=== PATIENT | female | born 1960 | race Caucasian/White ===

== ENCOUNTER 2025-06-18 12:59 | Emergency (ER) | payer OTHER, SELFPAY ==
[2025-06-18 13:00] VITALS: BP 127/97; PULSE 97; RESP 16; TEMP 36.2; O2SAT 100; BMI 19.9
--- NOTE | 2025-06-18 13:20 | RAD_ITS ---
PROCEDURE: FOOT MIN 3 VIEWS 06/18/2025 REASON FOR EXAM: INJURY/PAIN Pain to 2nd and 3rd metatarsals during palpation. TECHNIQUE: FOOT MIN 3 VIEWS COMPARISON: None FINDINGS: Three views of the left foot demonstrate diffuse osteopenia of the osseous structures. There are no fractures or dislocations. Joint spaces are well preserved. Soft tissues are unremarkable. RAD/Foot min 3 Views IMPRESSION: Unremarkable left foot study. Reading Location: [id number]
--- NOTE | 2025-06-18 13:43 | EX.ED.GENINJ ---
HPI History of Present Illness Chief Complaint: Lower Extremity Injury Detail of Chief Complaint: Injury left foot Onset/Context/Timing Onset: Yesterday Mechanism/Context: Blunt Injury and Fall Location of pain/injuries: Left foot Quality of Pain: Dull and Aching Location: Over the tarsal metatarsal bones left foot Current Severity: Mild Maximum Severity: Severe Worsened by: Putting weight to walk Relieved by: Elevation Associated Symptoms Associated Symptoms: Negative for Parasthesias, Weakness, Loss of function, Inability to ambulate (Difficulty walking), Loss of consciousness or Amnesia Narrative Narrative: Patient states she was walking her dog. She has a lesion that goes on her waist. Dog caused her to fall. She had pain. The pain is gotten worse. She states the pain is worse when she puts weight. She denies paresthesia, anesthesia or motor weakness. Denies prior injury. She does not have history of diabetes. She states she took a half of a tramadol pill that her friend gave her and was able to sleep through the night. 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) household members: spouse Smoking Status: Never smoker ROS ROS ED Cardiovascular Cardiovascular: Denies chest pain Respiratory/Chest Respiratory/Chest: Denies dyspnea Gastrointestinal Gastrointestinal: Denies abdominal pain, nausea or vomiting Musculoskeletal Musculoskeletal: Denies back pain or neck pain Neurologic Neurologic: Denies paresthesias EXAM Physical Exam Const Vital Signs: 06/18/25 13:00 Temperature 97.2 F L Temperature Source Temporal Pulse Rate 97 Respiratory Rate 16 Blood Pressure 127/97 H Blood Pressure Mean 107 Pulse Ox 100 Oxygen Delivery Method Room Air Positive well nourished and well developed General Appearance ED: well developed and NAD HEENT atraumatic Eyes PERRL and EOMs intact bilaterally Resp normal respiratory effort Cardio regular rhythm Rate: regular rate Extremity normal to inspection Extremity Narrative: There is no pain ovation of the lateral medial malleolus. There is no pain the patient base the fifth metatarsal. Patient has tenderness over the 2nd and 3rd metatarsal and proximal phalanx of respective toes. There is no bruising noted. There is no abrasion or laceration noted. DP pulses palpable. Unable to determine she has subungual hematoma since her toenails are polished. Neuro oriented x3 and CN's II-XII intact bilaterally Sensorium / Orientation: alert Psych mental status grossly normal and thought process normal Skin no rashes or lesions noted, no wounds, skin turgor normal and no jaundice MDM MDM MDM Narrative Medical decision making narrative: X-ray of the left foot was obtained to assess for fracture, subluxation/dislocation. Differential is contusion versus bony abnormality Radiography Chest X-Ray - ED: Read by ED Physician (Three-view x-ray of the left foot reveals no fracture, subluxation dislocation per my independent review at 1343.) Diagnostic Testing: Clinical Impression(s) from Imaging Studies Foot X-Ray 06/18/25 13:20 IMPRESSION: Unremarkable left foot study. Reading Location: [facility] Discharge Plan Triage Chief Complaint: Lower Extremity Injury ED Provider: Dao Field Dx/Rx/DC Orders Clinical Impression: Strain of foot, left Instructions: Self-Care for Strains and Sprains [facility] - 10-14 Days if not better Activity Restrictions/Additional Instructions: 1. Apply ice to your foot 6-8 times a day. 2. Take ibuprofen for your discomfort Print Language: French Disposition Disposition: Home, Self Care
--- OUTSIDE RECORDS SUMMARY | 2025-06-18 14:11 | XMS RPT_ITS | CCD ---
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 NOTE HNO ID: [id number] Author: Neha Camara RN Service: Emergency Medicine Author Type: Registered Nurse Type: ED Notes Filed: 02/14/2019 3:19 PM Note Text: Patient returned to the Emergency Department. [facility] ED NOTE HNO ID: [id number] Author: Neha Camara RN Service: Emergency Medicine Author Type: Registered Nurse Type: ED Notes Filed: 02/14/2019 3:00 PM Note Text: Patient transported to radiology with Tech. [facility] ED NOTE HNO ID: [id number] Author: Neha Camara RN Service: Emergency Medicine Author Type: Registered Nurse Type: ED Notes Filed: 02/14/2019 2:58 PM Note Text: Patient informed: the name of medication, why we are giving it, possible side effects, what they may expect to feel, and was offered a chance to ask questions, prior to the administration of Zofran and IVF. [facility] ED NOTE HNO ID: [id number] Author: Jennifer Ren RN Service: Emergency Medicine Author Type: Registered Nurse Type: ED Notes Filed: 02/14/2019 1:55 PM Note Text: Pt arrivew with complaint of neck pain, left leg pain, rash. Pt was seen in our facility about 1 month ago with transfer to [facility] for surgical procedure. Normal [facility] ED PROV NOTEon 02-14-2019 Protein mass conc HNO ID: [id number] Author: Joycelyn Oreilly MD Service: Emergency Medicine Author Type: Physician Type: ED Provider Notes Filed: 02/14/2019 4:51 PM Note Text: ED Provider Note Patient Name: Jamel Miramontes SERVICE DATE: 02/14/19 History Patient presents with: Neck Pain Leg Pain Rash Jamel Miramontes is a 59 year old female with history of submandibular absecss and sialaadenitis with drainage and dental extraction and IV antibiotics inpatient management about 4 weeks ago who presents with Neck Pain; Leg Pain; and Rash. Patient took nothing for this prior to arrival. - Symptoms began 2 days prior to arrival. - Severity: moderate - Timing: constant - Quality: sore - Neck Pain; is exacerbated by movement palpation. - Neck Pain; is not exacerbated by breathing. - Symptoms are associated with rash on torso. - Symptoms are not associated with fever, nausea and shortness of breath. - Improved by cold compresses. - Not improved by rest Has followup with oral surgeon this week . rash is a separate complaint and she thinks this might be from an exposure to some clothing that she bought no fevers chills or other infectious symptoms.. PAST MEDICAL HISTORY Diagnosis Date - Back pain - Collagenous colitis gets treated at [facility] - Depression PTSD - Fibromyalgia - Menopause - Migraine PAST SURGICAL HISTORY Procedure Laterality Date - APPENDECTOMY - KNEE SCOPE,DIAGNOSTIC right - LAMINECTOMY,LUMBAR Laminectomy, lumbar - REMOVAL OF OVARY(S) bilateral - TOTAL ABDOM HYSTERECTOMY due to endometriosis FAMILY HISTORY Problem Relation Age of Onset - other (hypothryoid) Mother - other (uterine cancer) Sister - Colon Cancer Maternal Uncle Social History Tobacco Use - Smoking status: Current Every Day Smoker Packs/day: 0.50 Years: 40.00 Pack years: 20.00 Types: Cigarettes - Smokeless tobacco: Never Used Substance and Sexual Activity - Alcohol use: Not on file Comment: rare - Drug use: Yes Types: Marijuana Comment: medical marijuana pt - Sexual activity: Not on file ALLERGIES Allergen Reactions - Chantix [Vareniclin* Mental Status Change - Darvocet A500 [Prop* GI Upset - Demerol [Meperidine* GI Upset - Nsaids (Non-Steroid* Intolerance Review of Systems Constitutional: Negative for chills and fever. HENT: Positive for facial swelling, mouth sores and voice change. Negative for congestion, sore throat and trouble swallowing. States that her voice is more hoarse than normal she also has a case of oral thrush that she is treating she had been on steroids and antibiotics recently for the original infection. Respiratory: Negative for cough and shortness of breath. Gastrointestinal: Negative for abdominal pain, nausea and vomiting. Skin: Negative for color change, pallor, rash and wound. Allergic/Immunologic: Negative for environmental allergies, food allergies and immunocompromised state. Neurological: Negative for dizziness, syncope, weakness and light-headedness. Psychiatric/Behavioral: Negative for confusion. The patient is nervous/anxious. Physical Exam BP 144/89 Pulse 105 Temp (Src) 97.2 (Temporal) Resp 20 Ht 5' 8 (1.73m) Wt 145 lb (65.8kg) SpO2 98% BMI 22.05 kg/(m2). O2 Therapy: Room Air Physical Exam Constitutional: She is oriented to person, place, and time. She appears well-developed and well-nourished. No distress. HENT: Head: Normocephalic and atraumatic. Mouth/Throat: Oropharynx is clear and moist. no trismus, dental extraction site looks healed no pooling of oral secretions she is tender underneath the right mandible but no fullness and not nearly as tender she was when she was more acutely infected last month. She has some hoarseness noted to the voice Eyes: EOM are normal. Right eye exhibits no discharge. Left eye exhibits no discharge. Neck: Normal range of motion. No tracheal deviation present. No thyromegaly present. Cardiovascular: Normal rate, regular rhythm and intact distal pulses. No murmur heard. Pulmonary/Chest: Effort normal and breath sounds normal. No respiratory distress. Musculoskeletal: Normal range of motion. She exhibits no edema, tenderness or deformity. Lymphadenopathy: She has no cervical adenopathy. Neurological: She is alert and oriented to person, place, and time. No sensory deficit. She exhibits normal muscle tone. Skin: Skin is warm and dry. Capillary refill takes less than 2 seconds. No rash noted. She is not diaphoretic. No erythema. No pallor. slightly raised excoriated rash to the trunk no petechiae purpura no cellulitis or shingles. Could be consistent with scabies Psychiatric: She has a normal mood and affect. Her behavior is normal. Judgment and thought content normal. Nursing note and vitals reviewed. Diagnostic Testing ED Labs Ordered and Reviewed - No data to display Procedures ED Course / Clinical Impression Clinical Impressions as of Feb 14 1650 Oral thrush Scabies MDM / Disposition / Plan labs and a repeat CT scan sure she has not reaccumulating abscess there is also the question of the sialadenitis I may empirically start her on permethrin cream CT scan shows no acute abnormalities and the patient does describe her oral thrush causing some throat discomfort and this may be accounting for some of her voice change in irritation that started her on Diflucan in addition to nystatin she has an appointment with dentist later this week empirically we'll start her on permethrin cream for scabies instructions Disposition The patient was discharged. Counseled patient regarding lab results, radiology results and suspected diagnosis. As well as the need for follow-up. Discharged home with verbal and written instructions. They were instructed to return as needed for persistent or worsening symptoms or any new concerns. Condition at disposition is stable and improved. for the skin rash. SIGNATURE: MD Joycelyn Molina MD 02/14/19 165 Normal [facility] Hemogram/Diffon 02-14-2019 Abs. Baso 0.03 thou/cmm Normal 0.00-0.[address] [facility] Comment on above: Performed By: #### L MCBD #### [place] [address] Abs. [place] 0.53 thou/cmm Normal 0.20-1.[address] [facility] Comment on above: Performed By: #### L MCBD #### [place] [phone] Abs. Neut (ANC) 5.00 thou/cmm Normal 3.00-5.67 [facility] [place] Comment on above: Performed By: #### L MCBD #### [place] [phone] Basophils/100 WBC (Bld) 0.4 % Normal [facility] [place] Comment on above: Performed By: #### L MCBD #### [facility] [address] [place], [place] [address] Eosinophils #/vol (Bld) 0.21 thou/cmm Normal 0.00-0.41 [facility] [place] Comment on above: Performed By: #### L MCBD #### [facility] [address] [place], [place] [address] Eosinophils/100 WBC (Bld) 2.8 % Normal [facility] [place] Comment on above: Performed By: #### L MCBD #### [facility] [address] [place] [address] Erythrocyte distribution width Ratio (RBC) 14.3 % Normal 11.5-15.9 [facility] [place] Comment on above: Performed By: #### L MCBD #### [place] [address] Hematocrit Volume Fraction (Bld) 40.8 % Normal 37.0-47.0 [facility] [place] Comment on above: Performed By: #### L MCBD #### [facility] [address] [place] [address] Hemoglobin mass conc (Bld) 13.6 g/dL Normal 12.0-16.0 [facility] [place] Comment on above: Performed By: #### L MCBD #### [place] [address] Lymphocytes #/vol (Bld) 1.73 thou/cmm Normal 1.50-3.65 [facility] [place] Comment on above: Performed By: #### L MCBD #### [address] [address] Lymphocytes/100 WBC (Bld) 23.1 % Normal [facility] [place] Comment on above: Performed By: #### L MCBD #### [facility] [address] [place] [address] MCH Entitic mass (RBC) 32.0 pg High 27.0-31.0 [facility] [place] Comment on above: Performed By: #### L MCBD #### [place] [address] MCHC mass conc (RBC) 33.3 % Normal 32.0-36.0 [facility] [place] Comment on above: Performed By: #### L MCBD #### [facility] [address] [place] [address] MCV Entitic volume (RBC) 96.0 fL Normal 81.0-99.0 [facility] [place] Comment on above: Performed By: #### L MCBD #### [facility] [address] [place] [address] Monocytes/100 WBC (Bld) 7.0 % Normal [facility] [place] Comment on above: Performed By: #### L MCBD #### [facility] [address] [place] [address] Platelet mean volume Entitic volume (Bld) 9.1 fL Normal 7.1-10.5 [facility] [place] Comment on above: Performed By: #### L MCBD #### [facility] [address] [place] [address] Platelets #/vol (Bld) 209 thou/cmm Normal 150-400 [facility] [place] Comment on above: Performed By: #### L MCBD #### [facility] [address] [place] [address] RBC #/vol (Bld) 4.25 mil/cmm Normal 4.20-5.40 [facility] Comment on above: Performed By: #### L MCBD #### [facility] [address] [place] [address] Seg Neutrophil 66.7 % Normal [facility] Comment on above: Performed By: #### L MCBD #### [facility] [address] [place] [address] WBC #/vol (Bld) 7.5 thou/cmm Normal 4.8-10.8 [facility] Comment on above: Performed By: #### L MCBD #### [facility] [address] [place] [address] MDRD eGFRon 02-14-2019 GFR/1.73 sq M predicted among non-blacks MDRD vol rate/area (S/P/Bld) mL/min/{1.73_m2} Normal >60mL/min/1.73 m2 [facility] [place] Comment on above: Result Comment: If t he patient is , multiply the result by 1.210. Performed By: #### L MCBD #### [facility] [address] [place] [address] Hemogramon 01-27-2019 Erythrocyte distribution width Ratio (RBC) 11.9 % Normal 11.7-14.4 [facility] [place] Comment on above: Performed By: #### L MCBD #### [facility] [address] [place] [address] Hematocrit Volume Fraction (Bld) 42.2 % Normal 34.1-44.9 [facility] [place] Comment on above: Performed By: #### L MCBD #### [place] [address] Hemoglobin mass conc (Bld) 14.2 g/dL Normal 11.2-15.7 [facility] [place] Comment on above: Performed By: #### L MCBD #### [place] [address] MCH Entitic mass (RBC) 31.4 pg Normal 25.6-32.2 [facility] [place] Comment on above: Performed By: #### L MCBD #### [place] [address] MCHC mass conc (RBC) 33.6 % Normal 31.6-34.8 [facility] [place] Comment on above: Performed By: #### L MCBD #### [facility] [address] [place] [address] MCV Entitic volume (RBC) 93.4 fL Normal 79.4-94.8 [facility] [place] Comment on above: Performed By: #### L MCBD #### [facility] [address] [place] [address] Platelet mean volume Entitic volume (Bld) 9.3 fL Low 9.4-12.3 [facility] [place] Comment on above: Performed By: #### L MCBD #### [place] [address] Platelets #/vol (Bld) 276 thou/cmm Normal 182-369 [facility] [place] Comment on above: Performed By: #### L MCBD #### [facility] [address] [place] [address] RBC #/vol (Bld) 4.52 mil/cmm Normal 3.93-5.22 [facility] Comment on above: Performed By: #### L MCBD #### [facility] [address] [place] [address] RDW SD 41.4 fl Normal 36.4-46.3 [facility] [place] Comment on above: Performed By: #### L MCBD #### [facility] [address] [place] [address] WBC #/vol (Bld) 12.16 thou/cmm High 3.98-10.04 [facility] [place] Comment on above: Performed By: #### L MCBD #### [place] [address] Hemogramon 01-26-2019 Erythrocyte distribution width Ratio (RBC) 12.2 % Normal 11.7-14.4 [facility] [place] Comment on above: Performed By: #### L MCBD #### [facility] [address] [place] [address] Hematocrit Volume Fraction (Bld) 38.3 % Normal 34.1-44.9 [facility] [place] Comment on above: Performed By: #### L MCBD #### [facility] [address] [place] [address] Hemoglobin mass conc (Bld) 12.9 g/dL Normal 11.2-15.7 [facility] [place] Comment on above: Performed By: #### L MCBD #### [facility] [address] [place] [address] MCH Entitic mass (RBC) 31.8 pg Normal 25.6-32.2 [facility] [place] Comment on above: Performed By: #### L MCBD #### [place] [address] MCHC mass conc (RBC) 33.7 % Normal 31.6-34.8 [facility] [place] Comment on above: Performed By: #### L MCBD #### [facility] [address] [place] [address] MCV Entitic volume (RBC) 94.3 fL Normal 79.4-94.8 [facility] [place] Comment on above: Performed By: #### L MCBD #### [facility] [address] [place] [address] Platelet mean volume Entitic volume (Bld) 9.1 fL Low 9.4-12.3 [facility] [place] Comment on above: Performed By: #### L MCBD #### [facility] [address] [place] [address] Platelets #/vol (Bld) 259 thou/cmm Normal 182-369 [facility] [place] Comment on above: Performed By: #### L MCBD #### [facility] [address] [place] [address] RBC #/vol (Bld) 4.06 mil/cmm Normal 3.93-5.22 [facility] Comment on above: Performed By: #### L MCBD #### [facility] [address] [place] [address] RDW SD 42.2 fl Normal 36.4-46.3 [facility] [place] Comment on above: Performed By: #### L MCBD #### [facility] [address] [place] [address] WBC #/vol (Bld) 11.55 thou/cmm High 3.98-10.04 [facility] [place] Comment on above: Performed By: #### L MCBD #### [facility] [address] [place] [address] Hemogramon 01-25-2019 Erythrocyte distribution width Ratio (RBC) 12.3 % Normal 11.7-14.4 [facility] [place] Comment on above: Performed By: #### L MCBD #### [facility] [address] [place] [address] Hematocrit Volume Fraction (Bld) 38.1 % Normal 34.1-44.9 [facility] [place] Comment on above: Performed By: #### L MCBD #### [facility] [address] [place] [address] Hemoglobin mass conc (Bld) 12.7 g/dL Normal 11.2-15.7 [facility] [place] Comment on above: Performed By: #### L MCBD #### [facility] [address] [place] [address] MCH Entitic mass (RBC) 32.1 pg Normal 25.6-32.2 [facility] [place] Comment on above: Performed By: #### L MCBD #### [facility] [address] [place] [address] MCHC mass conc (RBC) 33.3 % Normal 31.6-34.8 [facility] [place] Comment on above: Performed By: #### L MCBD #### [facility] [address] [place] [address] MCV Entitic volume (RBC) 96.2 fL High 79.4-94.8 [facility] [place] Comment on above: Performed By: #### L MCBD #### [place] [address] Platelet mean volume Entitic volume (Bld) 9.7 fL Normal 9.4-12.3 [facility] [place] Comment on above: Performed By: #### L MCBD #### [place] [address] Platelets #/vol (Bld) 263 thou/cmm Normal 182-369 [facility] [place] Comment on above: Performed By: #### L MCBD #### [place] [address] RBC #/vol (Bld) 3.96 mil/cmm Normal 3.93-5.22 [facility] Comment on above: Performed By: #### L MCBD #### [place] [address] RDW SD 43.3 fl Normal 36.4-46.3 [facility] [place] Comment on above: Performed By: #### L MCBD #### [place] [address] WBC #/vol (Bld) 16.24 thou/cmm High 3.98-10.04 [facility] [place] Comment on above: Performed By: #### L MCBD #### [facility] [address] [place] [address] Cult Fungalon 01-24-2019 Cult Fungal Test performed at [facility] No fungus (yeast or mold) cultured Normal [facility] [place] Comment on above: Performed By: #### L MCBD #### [facility] [address] [place] [address] Cult and Smr ADEN and AERon 0 01-24-2019 Cult and Smr ADEN and AER Test performed at [facility] No Bacteroides fragilis group isolated. No Clostridium perfringens isolated. Many Gram positive cocci in pairs and chains Many Polymorphonuclear leukocytes Few Mononuclear cells Many RBCs ORGANISM: *Eikenella species (ID: 1) Few ORGANISM: *Streptococcus anginosus (milleri) group (ID: 2) Few ORGANISM: *Anaerobic Gram-positive coccus (ID: 3) Few Susceptibility testing is not routinely performed on anaerobes from non-sterile sites or in mixed cultures. Call lab within 72 hours to initiate workup if clinically indicated. Normal [facility] [place] Comment on above: Performed By: #### L MCBD #### [facility] [address] [place] [address] Basic Panelon 01-23-2019 Creatinine mass conc 0.66 mg/dL Normal 0.51-0.95 [facility] [place] Comment on above: Performed By: #### P 8 #### [facility] [address] [place] [address] Anion gap molar conc 8 mmol/L Normal 8-16 [facility] [place] Comment on above: Performed By: #### P 8 #### [facility] [address] [place] [address] CO2 molar conc 30 mmol/L Normal 21-32 [facility] Comment on above: Performed By: #### P 8 #### [facility] [address] [place] [address] Urea nitrogen mass conc 5 mg/dL Low 7-18 [facility] [place] Comment on above: Performed By: #### P 8 #### [facility] [address] [place] [address] Calcium mass conc 8.3 mg/dL Low 8.5-10.1 [facility] Comment on above: Performed By: #### P 8 #### [facility] [address] [place] [address] Glucose mass conc 96 mg/dL Normal 70-99 [facility] Comment on above: Performed By: #### P 8 #### [facility] [address] [place] [address] Chloride molar conc 104 mmol/L Normal 98-107 [facility] [place] Comment on above: Performed By: #### P 8 #### [facility] [address] [place] [address] Potassium molar conc 3.5 mmol/L Normal 3.5-5.1 [facility] [place] Comment on above: Performed By: #### P 8 #### [facility] [address] [place] [address] Sodium molar conc 138 mmol/L Normal 136-145 [facility] Comment on above: Performed By: #### P 8 #### [facility] [address] [place] [address] Hemogramon 01-23-2019 Erythrocyte distribution width Ratio (RBC) 12.6 % Normal 11.7-14.4 [facility] [place] Comment on above: Performed By: #### C BC1 #### [facility] [address] [place] [address] Hematocrit Volume Fraction (Bld) 42.7 % Normal 34.1-44.9 [facility] [place] Comment on above: Performed By: #### C BC1 #### [facility] [address] [place] [address] Hemoglobin mass conc (Bld) 13.9 g/dL Normal 11.2-15.7 [facility] [place] Comment on above: Performed By: #### C BC1 #### [facility] [address] [place] [address] MCH Entitic mass (RBC) 31.5 pg Normal 25.6-32.2 [facility] [place] Comment on above: Performed By: #### C BC1 #### [facility] [address] [place] [address] MCHC mass conc (RBC) 32.6 % Normal 31.6-34.8 [facility] [place] Comment on above: Performed By: #### C BC1 #### [facility] [address] [place] [address] MCV Entitic volume (RBC) 96.8 fL High 79.4-94.8 [facility] [place] Comment on above: Performed By: #### C BC1 #### [facility] [address] [place] [address] Platelet mean volume Entitic volume (Bld) 9.4 fL Normal 9.4-12.3 [facility] [place] Comment on above: Performed By: #### C BC1 #### [place] [address] Platelets #/vol (Bld) 220 thou/cmm Normal 182-369 [facility] [place] Comment on above: Performed By: #### C BC1 #### [place] [address] RBC #/vol (Bld) 4.41 mil/cmm Normal 3.93-5.22 [facility] Comment on above: Performed By: #### C BC1 #### [place] [address] RDW SD 45.4 fl Normal 36.4-46.3 [facility] [place] Comment on above: Performed By: #### C BC1 #### [place] [address] WBC #/vol (Bld) 12.84 thou/cmm High 3.98-10.04 [facility] [place] Comment on above: Performed By: #### C BC1 #### [place] [address] MDRD GFRon 01-23-2019 GFR/1.73 sq M predicted among non-blacks MDRD vol rate/area (S/P/Bld) mL/min/{1.73_m2} Normal >60mL/min/1.73 m2 [facility] [place] Comment on above: Result Comment: If t he patient is , multiply the result by 1.210. Performed By: #### L MCBD #### [facility] [address] [place] [address] Comprehensive Panelon 2018 Anion gap molar conc 15 mmol/L Normal 8-20 [facility] [place] Comment on above: Performed By: #### L P14 #### [facility] [address] [place] [address] Albumin mass conc 3.7 g/dL Normal 3.4-5.0 [facility] Comment on above: Performed By: #### L P14 #### [facility] [address] [place] [address] ALP enzyme act/vol 69 U/L Normal 46-116 [facility] [place] Comment on above: Performed By: #### L P14 #### [facility] [address] [place] [address] ALT-SGPT Blood 23 U/L Normal 14-63 [facility] Comment on above: Performed By: #### L P14 #### [facility] [address] [place] [address] AST-SGOT Blood 15 U/L Normal 15-37 [facility] Comment on above: Performed By: #### L P14 #### [facility] [address] [place] [address] Bilirubin Ql (U) 0.7 mg/dL Normal 0.2-1.0 [facility] Comment on above: Performed By: #### L P14 #### [facility] [address] [place] [address] Calcium mass conc 9.3 mg/dL Normal 8.5-10.1 [facility] Comment on above: Performed By: #### L P14 #### [facility] [address] [place] [address] CO2 Blood 32 mEq/L Normal 21-32 [facility] [place] Comment on above: Performed By: #### L P14 #### [facility] [address] [place] [address] Creatinine mass conc 0.82 mg/dL Normal 0.51-0.95 [facility] [place] Comment on above: Performed By: #### L P14 #### [facility] [address] [place], [place] [address] Glucose mass conc 83 mg/dL Normal 70-99 [facility] Comment on above: Performed By: #### L P14 #### [facility] [address] [place], [place] [address] Protein mass conc 7.3 g/dL Normal 6.4-8.2 [facility] Comment on above: Performed By: #### L P14 #### [facility] [address] [place] [address] Urea nitrogen mass conc 8 mg/dL Normal 7-25 [facility] [place] Comment on above: Performed By: #### L P14 #### [facility] [address] [place] [address] Urea nitrogen/Creatinine mass ratio 10 mg/mg Normal 10-20 [facility] [place] Comment on above: Performed By: #### L P14 #### [facility] [address] [place] [address] Chloride molar conc 99 mmol/L Normal 98-109 [facility] [place] Comment on above: Result Comment: Test ing performed on an Tran i-STAT. Performed By: #### L P14 #### [facility] [address] [place] [address] Potassium molar conc 3.6 mmol/L Normal 3.5-4.9 [facility] [place] Comment on above: Result Comment: Test ing performed on an Tran i-STAT. Performed By: #### L P14 #### [facility] [address] [place] [address] Sodium molar conc 142 mmol/L Normal 138-146 [facility] Comment on above: Result Comment: Test ing performed on an Tran i-STAT. Performed By: #### L P14 #### [facility] [address] [place] [address] ED NOTEon 01-22-2019 ED NOTE HNO ID: [id number] Author: Migdalia DesouzaRn) BALJIT Easton Service: Emergency Medicine Author Type: Registered Nurse Type: ED Notes Filed: 01/22/2019 7:23 PM Note Text: Patient informed: Name of medication, why we are giving it, possible side effects, what they may expect to feel, and was offered a chance to ask questions prior to the administration of hydromorphone. Patient verbalizes understanding and denies any further questions as this time. Normal [facility] ED NOTE HNO ID: [id number] Author: Ethel DesouzaRnJennifer Uriostegui RN Service: Emergency Medicine Author Type: Registered Nurse Type: ED Notes Filed: 01/22/2019 6:39 PM Note Text: Bed assignment received from [facility], 7106-2[place] [id number]. [facility] called for transport eta 45min Normal [facility] ED NOTE HNO ID: [id number] Author: Migdalia Easton RN Service: Emergency Medicine Author Type: Registered Nurse Type: ED Notes Filed: 01/22/2019 5:09 PM Note Text: Patient informed: Name of medication, why we are giving it, possible side effects, what they may expect to feel, and was offered a chance to ask questions prior to the administration of hydromorphone. Patient verbalizes understanding and denies any further questions as this time. Normal [facility] ED NOTE HNO ID: [id number] Author: Migdalia Easton RN Service: Emergency Medicine Author Type: Registered Nurse Type: ED Notes Filed: 01/22/2019 2:37 PM Note Text: Patient informed: Name of medication, why we are giving it, possible side effects, what they may expect to feel, and was offered a chance to ask questions prior to the administration of zofran and morphine. Patient verbalizes understanding and denies any further questions as this time. Normal [facility] ED NOTE HNO ID: [id number] Author: Migdalia Easton RN Service: Emergency Medicine Author Type: Registered Nurse Type: ED Notes Filed: 01/22/2019 2:10 PM Note Text: Pt with swelling to right lower salivary glands with bad tooth however patient states tooth is not fractured. Pt reports appt with dentist Thursday for extraction. Patient reports persistent pain with Percocet ineffective. Reports prednisone rx complete,4 more days of clindamycin. Patient reports inability to open mouth and odynophagia. Denies fever at home. Reports only able to drink; unable to week x 7 days. Normal [facility] ED NOTE HNO ID: [id number] Author: Christiano (Rn) BALJIT Egan Service: Emergency Medicine Author Type: Registered Nurse Type: ED Notes Filed: 01/22/2019 2:14 PM Note Text: Normal [facility] ED PROV NOTEon 01-22-2019 Protein mass conc HNO ID: [id number] Author: Joycelyn Oreilly MD Service: Emergency Medicine Author Type: Physician Type: ED Provider Notes Filed: 01/22/2019 6:46 PM Note Text: ED Provider Note Patient Name: Jamel Miramontes SERVICE DATE: 01/22/19 History Patient presents with: Dental Problem Jamel Miramontes is a 58 year old female with history of poor dentition who presents with Dental Problem. Patient took prescription medication prior to arrival. - Symptoms began 6 days prior to arrival. - Severity: moderate - Timing: constant - Quality: pain - Dental Problem is exacerbated by movement palpation. - Dental Problem is not exacerbated by breathing. - Symptoms are associated with pain with swallowing more difficulty opening her mouth. - Symptoms are not associated with shortness of breath. - Improved by nothing helping. - Not improved by OTC medications, warm compresses and antibiotics. PAST MEDICAL HISTORY Diagnosis Date - Back pain - Collagenous colitis [facility] - Depression PTSD - Fibromyalgia - Menopause - Migraine PAST SURGICAL HISTORY Procedure Laterality Date - APPENDECTOMY - KNEE SCOPE,DIAGNOSTIC right - LAMINECTOMY,LUMBAR Laminectomy, lumbar - REMOVAL OF OVARY(S) bilateral - TOTAL ABDOM HYSTERECTOMY due to endometriosis FAMILY HISTORY Problem Relation Age of Onset - other (hypothryoid [Other]) Mother - other (uterine cancer [Other]) Sister - Colon Cancer Maternal Uncle Social History Social History Main Topics - Smoking status: Current Every Day Smoker Packs/day: 0.50 Years: 40.00 Types: Cigarettes - Smokeless tobacco: Never Used Comment: has not had a cigarette in 3 weeks - Alcohol use Not on file Comment: rare - Drug use: Yes Types: Marijuana Comment: medical marijuana pt - Sexual activity: Not on file ALLERGIES Allergen Reactions - Chantix [Vareniclin* Mental Status Change - Darvocet A500 [Prop* GI Upset - Demerol [Meperidine* GI Upset - Nsaids (Non-Steroid* Intolerance Review of Systems Constitutional: Negative for chills and fever. HENT: Positive for dental problem and trouble swallowing. Negative for congestion and drooling. Respiratory: Negative for cough and shortness of breath. Gastrointestinal: Negative for nausea and vomiting. Musculoskeletal: Positive for neck pain. Negative for back pain and myalgias. Skin: Negative for color change, pallor, rash and wound. Allergic/Immunologic: Negative for environmental allergies, food allergies and immunocompromised state. Neurological: Negative for dizziness and syncope. Psychiatric/Behavioral: Negative for confusion. The patient is not nervous/anxious. Physical Exam BP 177/107 Pulse 72 Temp (Src) 98.4 (Temporal Artery) Resp 18 Ht 5' 8 (1.73m) Wt 130 lb (59.0kg) SpO2 96% BMI 19.77 kg/(m2). Physical Exam Constitutional: She is oriented to person, place, and time. She appears well-developed and well-nourished. No distress. HENT: Head: Normocephalic and atraumatic. Right Ear: External ear normal. Left Ear: External ear normal. difficulty opening mouth some of this is secondary to her TMJ but I think some of this also represents trismus no pooling of oral secretions she has absence of most the dentition on the right lower jaw I don't see any obvious intraoral abscess she has tender in the submandibular tissues with some swelling but not firm and no cellulitic changes Eyes: EOM are normal. Right eye exhibits no discharge. Left eye exhibits no discharge. No scleral icterus. Neck: Normal range of motion. Neck supple. No JVD present. No tracheal deviation present. Cardiovascular: Normal rate and regular rhythm. Pulmonary/Chest: Effort normal and breath sounds normal. No respiratory distress. Abdominal: Soft. She exhibits no distension. There is no tenderness. Musculoskeletal: Normal range of motion. She exhibits no edema, tenderness or deformity. Neurological: She is alert and oriented to person, place, and time. No sensory deficit. She exhibits normal muscle tone. Skin: Skin is warm and dry. Capillary refill takes less than 2 seconds. No rash noted. She is not diaphoretic. No erythema. No pallor. Psychiatric: Her behavior is normal. Judgment and thought content normal. tearful Nursing note and vitals reviewed. Diagnostic Testing ED Labs Ordered and Reviewed - No data to display Procedures ED Course / Clinical Impression Clinical Impressions as of Jan 22 1846 Submandibular abscess MDM / Disposition / Plan third visit for same complaint she had clindamycin started 5 days ago she's getting worse rather than better CT scan done 3 days ago showed myositis and sialoadenitis right side and a rescan the neck start IV Zosyn and analgesics I think she is going to need transfer to a facility with ENT/oral surgery availability. CT shows a formation of an abscess today on medial to the mandible going to discuss this case with transfer line C we can get patient to a facility with the appropriate level of care discuss this with both she and her and they're in agreement. She is stable to transfer her airway is protected accepted by Dr. Saenz at [facility] Disposition The patient was transferred. Transferred to [facility]. Condition at disposition is stable. SIGNATURE: MD Joycelyn Molina MD 01/22/19 1846 Normal [facility] Hemogram/Diffon 01-22-2019 Hemoglobin mass conc (Bld) 14.0 g/dL Normal 12.0-16.0 [facility] [place] Comment on above: Performed By: #### L CBCD #### [place] [address] Performed By: #### L MCBD #### [place] [address] RBC #/vol (Bld) 4.42 mil/cmm Normal 4.20-5.40 [facility] Comment on above: Performed By: #### L CBCD #### [place] [address] Performed By: #### L MCBD #### [place] [address] Hemogram/Manual Diffon 01-22 Abs. Baso 0.00 thou/cmm Normal 0.00-0.[address] [facility] Comment on above: Performed By: #### L MCBD #### [place] [address] Abs. [place] 0.70 thou/cmm Normal 0.20-1.[address] [facility] Comment on above: Performed By: #### L MCBD #### [place] [address] [place], [place] [address] Abs. Neut (ANC) 7.22 thou/cmm High 3.00-5.67 [facility] [place] Comment on above: Performed By: #### L MCBD #### [facility] [address] [place], [place] [address] Atypical Lymph 5.0 % Normal [facility] Comment on above: Performed By: #### L MCBD #### [facility] [address] [place], [place] [address] Basophils/100 WBC (Bld) 0.0 % Normal [facility] [place] Comment on above: Performed By: #### L MCBD #### [facility] [address] [place], [place] [address] Eosinophils #/vol (Bld) 0.14 thou/cmm Normal 0.00-0.41 [facility] [place] Comment on above: Performed By: #### L MCBD #### [facility] [address] [place], [place] [address] Eosinophils/100 WBC (Bld) 1.0 % Normal [facility] [place] Comment on above: Performed By: #### L MCBD #### [facility] [address] [place], [place] [address] Lymphocytes #/vol (Bld) 5.84 thou/cmm High 1.50-3.65 [facility] [place] Comment on above: Performed By: #### L MCBD #### [facility] [address] [place], [place] [address] Lymphocytes/100 WBC (Bld) 37.0 % Normal [facility] [place] Comment on above: Performed By: #### L MCBD #### [facility] [address] [place], [place] [address] Monocytes/100 WBC (Bld) 5.0 % Normal [facility] [place] Comment on above: Performed By: #### L MCBD #### [facility] [address] [place], [place] [address] Platelets #/vol (Bld) Normal [facility] Comment on above: Performed By: #### L MCBD #### [facility] [address] [place] [address] RBC morphology finding Nom (Bld) Normal Normal [facility] [place] Comment on above: Performed By: #### L MCBD #### [facility] [address] [place] [address] Seg Neutrophil 52.0 % Normal [facility] Comment on above: Performed By: #### L MCBD #### [facility] [address] [place] [address] Diff Type Manual Diff Normal [facility] [place] Comment on above: Performed By: #### L MCBD #### [facility] [address] [place] [address] Erythrocyte distribution width Ratio (RBC) 12.7 % Normal 11.5-15.9 [facility] [place] Comment on above: Performed By: #### L MCBD #### [place] [address] Performed By: #### L CBCD #### [place] [address] Hematocrit Volume Fraction (Bld) 42.3 % Normal 37.0-47.0 [facility] [place] Comment on above: Performed By: #### L MCBD #### [place] [address] Performed By: #### L CBCD #### [place] [address] MCH Entitic mass (RBC) 31.7 pg High 27.0-31.0 [facility] [place] Comment on above: Performed By: #### L MCBD #### [place] [address] Performed By: #### L CBCD #### [place] [address] MCHC mass conc (RBC) 33.1 % Normal 32.0-36.0 [facility] [place] Comment on above: Performed By: #### L MCBD #### [place] [address] Performed By: #### L CBCD #### [place] [address] MCV Entitic volume (RBC) 95.7 fL Normal 81.0-99.0 [facility] [place] Comment on above: Performed By: #### L MCBD #### [place] [address] Performed By: #### L CBCD #### [place] [address] Platelet mean volume Entitic volume (Bld) 9.5 fL Normal 7.1-10.5 [facility] [place] Comment on above: Performed By: #### L MCBD #### [place] [address] Performed By: #### L CBCD #### [place] [address] Platelets #/vol (Bld) 244 thou/cmm Normal 150-400 [facility] [place] Comment on above: Performed By: #### L MCBD #### [place] [address] Performed By: #### L CBCD #### [place] [address] WBC #/vol (Bld) 13.9 thou/cmm High 4.8-10.8 [facility] [place] Comment on above: Performed By: #### L MCBD #### [place] [address] Performed By: #### L CBCD #### [place] [address] MDRD eGFRon 01-22-2019 GFR/1.73 sq M predicted among non-blacks MDRD vol rate/area (S/P/Bld) mL/min/{1.73_m2} Normal >60mL/min/1.73 m2 [facility] [place] Comment on above: Result Comment: If t he patient is , multiply the result by 1.210. Performed By: #### L GFR #### [place] [address] Basic Panelon 01-20-2019 Anion gap molar conc 15 mmol/L Normal 8-20 [facility] [place] Comment on above: Performed By: #### L P8 #### [facility] [address] [place], [place] [address] Chloride molar conc 99 mmol/L Normal 98-109 [facility] [place] Comment on above: Result Comment: Test ing performed on an Tran i-STAT. Performed By: #### L P8 #### [facility] [address] [place] [address] Potassium molar conc 3.4 mmol/L Low 3.5-4.9 [facility] [place] Comment on above: Result Comment: Test ing performed on an Tran i-STAT. Performed By: #### L P8 #### [facility] [address] [place] [address] Sodium molar conc 142 mmol/L Normal 138-146 [facility] Comment on above: Result Comment: Test ing performed on an Tran i-STAT. Performed By: #### L P8 #### [facility] [address] [place] [address] Calcium mass conc 9.3 mg/dL Normal 8.5-10.1 [facility] Comment on above: Performed By: #### L P8 #### [facility] [address] [place] [address] CO2 Blood 31 mEq/L Normal 21-32 [facility] [place] Comment on above: Performed By: #### L P8 #### [facility] [address] [place] [address] Creatinine mass conc 0.76 mg/dL Normal 0.51-0.95 [facility] [place] Comment on above: Performed By: #### L P8 #### [facility] [address] [place] [address] Glucose mass conc 105 mg/dL High 70-99 [facility] Comment on above: Performed By: #### L P8 #### [facility] [address] [place] [address] Urea nitrogen mass conc 15 mg/dL Normal 7-25 [facility] [place] Comment on above: Performed By: #### L P8 #### [facility] [address] [place] [address] Urea nitrogen/Creatinine mass ratio 20 mg/mg Normal 10-20 [facility] [place] Comment on above: Performed By: #### L P8 #### [facility] [address] [place] [address] ED NOTEon 01-20-2019 ED NOTE HNO ID: [id number] Author: Corinne DesouzaRn) BALJIT Vaughn Service: Emergency Medicine Author Type: Registered Nurse Type: ED Notes Filed: 01/20/2019 12:01 PM Note Text: Pt given discharge instructions and prescription for Percocet. Verbalized understanding. Ambulatory to lobby with steady gait. [facility] ED NOTE HNO ID: [id number] Author: Ethel DesouzaRn) BALJIT Uriostegui Service: Emergency Medicine Author Type: Registered Nurse Type: ED Notes Filed: 01/28/2019 9:35 AM Note Text: Chart accessed on 01-28 for chart audit pi [facility] ED NOTE HNO ID: [id number] Author: Joy DesouzaRn) BALJIT Humphrey Service: (none) Author Type: Registered Nurse Type: ED Notes Filed: 01/20/2019 11:14 AM Note Text: Pt resting quietly No drooling, no s/s of distress Aware CT results are pending Call light in reach [facility] ED NOTE HNO ID: [id number] Author: Corinne DesouzaRn) BALJIT Vaughn Service: Emergency Medicine Author Type: Registered Nurse Type: ED Notes Filed: 01/20/2019 9:41 AM Note Text: Warm blankets given. Pt to radiology by stretcher with tech. [facility] ED NOTE HNO ID: [id number] Author: Corinne Dejesus) BALJIT Vaughn Service: Emergency Medicine Author Type: Registered Nurse Type: ED Notes Filed: 01/20/2019 9:24 AM Note Text: Patient informed: the name of medication, why we are giving it, possible side effects, what they may expect to feel, and was offered a chance to ask questions, prior to the administration of IVF and Decadron. [facility] ED NOTE HNO ID: [id number] Author: Corinne Vaughn RN Service: Emergency Medicine Author Type: Registered Nurse Type: ED Notes Filed: 01/20/2019 9:02 AM Note Text: Pt arrives c/o jaw pain and sore throat for 1 week Seen Thursday, Rx for antibiotics given States sore throat improving slightly but now has difficulty opening mouth due to jaw pain Normal [facility] ED PROV NOTEon 01-20-2019 Protein mass conc HNO ID: [id number] Author: Evelina Chambers DO Service: Emergency Medicine Author Type: Physician Type: ED Provider Notes Filed: 01/20/2019 2:26 PM Note Text: ED Provider Note Patient Name: Jamel Miramontes SERVICE DATE: 01/20/19 History Patient presents with: Mouth/Lip Problem Sore Throat Jamel Miramontes is a 58 year old female with history of migraine, fibromyalgia, TMJ who presents with Mouth/Lip Problem and Sore Throat. Patient took prescription medication prior to arrival. - Symptoms began 1 week prior to arrival. - Severity: moderate - Timing: constant - Quality: sharp and sore - Mouth/Lip Problem and Sore Throat is exacerbated by movement palpation. - Mouth/Lip Problem and Sore Throat is not exacerbated by rest. - Symptoms are associated with right facial swelling, difficulty opening mouth, pain with opening mouth, drooling at times. - Symptoms are not associated with chills, fever, nausea, rash, shortness of breath, vomiting, stridor, dental pain. - Improved by nothing. - Not improved by anything. Patient presents with right lower jaw/neck pain, sore throat, pain with opening mouth and difficulty opening mouth due to pain. Symptoms initially started one week ago. Patient states she has NO dental pain. She does have TMJ. She was here on Thursday and prescribed clindamycin and steroids. She states she is no better. She states at night she was drooling. No fever. No stridor or shortness of breath. She states she is scared because her mom just from an abscess in October and had similar symptoms (? Abscess in neck?). Patient had her childhood vaccinations. PAST MEDICAL HISTORY Diagnosis Date - Back pain - Collagenous colitis [facility] - Depression PTSD - Fibromyalgia - Menopause - Migraine PAST SURGICAL HISTORY Procedure Laterality Date - APPENDECTOMY - KNEE SCOPE,DIAGNOSTIC right - LAMINECTOMY,LUMBAR Laminectomy, lumbar - REMOVAL OF OVARY(S) bilateral - TOTAL ABDOM HYSTERECTOMY due to endometriosis FAMILY HISTORY Problem Relation Age of Onset - other (hypothryoid [Other]) Mother - other (uterine cancer [Other]) Sister - Colon Cancer Maternal Uncle Social History Social History Main Topics - Smoking status: Current Every Day Smoker Packs/day: 0.50 Years: 40.00 Types: Cigarettes - Smokeless tobacco: Never Used Comment: has not had a cigarette in 3 weeks - Alcohol use Not on file Comment: rare - Drug use: Yes Types: Marijuana Comment: medical marijuana pt - Sexual activity: Not on file ALLERGIES Allergen Reactions - Chantix [Vareniclin* Mental Status Change - Darvocet A500 [Prop* GI Upset - Demerol [Meperidine* GI Upset - Nsaids (Non-Steroid* Intolerance Review of Systems Constitutional: Negative for chills and fever. HENT: Positive for drooling (at night, not currently), facial swelling and sore throat. Negative for congestion, dental problem, ear discharge, ear pain, mouth sores, rhinorrhea, sinus pain, trouble swallowing and voice change. Eyes: Negative for photophobia and visual disturbance. Respiratory: Negative for shortness of breath, wheezing and stridor. Cardiovascular: Negative for chest pain. Gastrointestinal: Negative for nausea and vomiting. Musculoskeletal: Positive for neck pain. Negative for neck stiffness. Skin: Negative for color change, pallor, rash and wound. Allergic/Immunologic: Negative for immunocompromised state. Neurological: Negative for weakness, numbness and headaches. Psychiatric/Behavioral: Negative for agitation and confusion. Physical Exam BP 130/72 Pulse 65 Temp (Src) 98.1 (Temporal Artery) Resp 16 Ht 5' 8 (1.73m) Wt 135 lb (61.2kg) SpO2 96% BMI 20.53 kg/(m2). Physical Exam Constitutional: She is oriented to person, place, and time. She appears well-developed and well-nourished. HENT: Head: Normocephalic and atraumatic. Right Ear: External ear normal. Left Ear: External ear normal. Mouth/Throat: Uvula is midline, oropharynx is clear and moist and mucous membranes are normal. No oral lesions. There is trismus (states she has difficulty opening her mouth due to the pain in right jaw/face) in the jaw. Abnormal dentition. No dental abscesses, uvula swelling or lacerations. No oropharyngeal exudate, posterior oropharyngeal edema, posterior oropharyngeal erythema or tonsillar abscesses. No tonsillar exudate. She has some difficulty opening mouth completely, painful when she tries Some dental fillings noted, no visible dental abscess. No tenderness palpating teeth with tongue blade. There is some swelling along the right buccal mucosa. She has tenderness palpating the right submandibular compartment and right lower gumline. Mild swelling. No firmness or crepitus. No elevation of the tongue, uvula is midline Eyes: Pupils are equal, round, and reactive to light. Conjunctivae and EOM are normal. No scleral icterus. Neck: Trachea normal, normal range of motion, full passive range of motion without pain and phonation normal. Neck supple. No JVD present. Cardiovascular: Normal rate, regular rhythm and intact distal pulses. Pulmonary/Chest: Effort normal and breath sounds normal. No stridor. Neurological: She is alert and oriented to person, place, and time. No cranial nerve deficit. GCS eye subscore is 4. GCS verbal subscore is 5. GCS motor subscore is 6. Skin: Skin is warm and dry. Capillary refill takes less than 2 seconds. No rash noted. She is not diaphoretic. No erythema. No pallor. Psychiatric: Her behavior is normal. Her mood appears anxious. Nursing note and vitals reviewed. Diagnostic Testing ED Labs Ordered and Reviewed BASIC METABOLIC PANEL (AK,AV,EU,FV,HL,RITA,MM,S P) - Abnormal; Notable for the following: Result Value Ref Range Glucose 105 (*) 70 - 99 mg/dL Potassium 3.4 (*) 3.5 - 4.9 mEq/L All other components within normal limits CBC + AUTO DIFF (AK,AV,EU,FV,HL,RITA,MM,S P) - Abnormal; Notable for the following: WBC 12.4 (*) 4.8 - 10.8 thou/cmm MCH 31.9 (*) 27.0 - 31.0 pg Abs. Neut(Anc) 10.42 (*) 3.00 - 5.67 thou/cmm Abs. Lymph 1.24 (*) 1.50 - 3.65 thou/cmm Abs. Baso 0.12 (*) 0.00 - 0.08 thou/cmm All other components within normal limits MDRD GFR Procedures ED Course / Clinical Impression Clinical Impressions as of Jan 20 1414 Submandibular sialoadenitis MDM / Disposition / Plan Due to persistent symptoms, will obtain labs and a CT soft tissue neck to further assess. I discussed results with the patient. She is non-toxic appearing. No drooling, she is handling her secretions normally. No respiratory distress. She just started clindamycin on Thursday. I discussed to continue the clindamycin and steroids and I will add a prescription for a small amount of pain medication (6 tabs) to help her pain. I stressed the importance of returning to the ED for new/worsening symptoms, otherwise follow up with primary. She is scheduled to see her dentist on Thursday, as well. Disposition The patient was discharged. Counseled patient regarding lab results, radiology results and suspected diagnosis. As well as the need for follow-up. Discharged home with verbal and written instructions. They were instructed to return as needed for persistent or worsening symptoms or any new concerns. Condition at disposition is stable. SIGNATURE: Evelina Chambers, DO Evelina Chambers, DO 01/20/19 1422 Evelina Chambers, DO 01/20/19 1423 Evelina Chambers, DO 01/20/19 1426 Normal [facility] Hemogram/Diffon 01-20-2019 Hemoglobin mass conc (Bld) 14.4 g/dL Normal 12.0-16.0 [facility] [place] Comment on above: Performed By: #### L CBCD #### [place] [address] Performed By: #### L MCBD #### [place] [address] MCH Entitic mass (RBC) 31.9 pg High 27.0-31.0 [facility] [place] Comment on above: Performed By: #### L CBCD #### [place] [address] Performed By: #### L MCBD #### [place] [address] MCHC mass conc (RBC) 33.0 % Normal 32.0-36.0 [facility] Comment on above: Performed By: #### L CBCD #### [facility] [address] [place] [address] Performed By: #### L MCBD #### [place] [address] MCV Entitic volume (RBC) 96.7 fL Normal 81.0-99.0 [facility] [place] Comment on above: Performed By: #### L CBCD #### [place] [address] Performed By: #### L MCBD #### [place] [address] Platelet mean volume Entitic volume (Bld) 9.7 fL Normal 7.1-10.5 [facility] [place] Comment on above: Performed By: #### L CBCD #### [place] [address] Performed By: #### L MCBD #### [place] [address] Platelets #/vol (Bld) 208 thou/cmm Normal 150-400 [facility] Comment on above: Performed By: #### L CBCD #### [place] [address] Performed By: #### L MCBD #### [place] [address] RBC #/vol (Bld) 4.52 mil/cmm Normal 4.20-5.40 [facility] Comment on above: Performed By: #### L CBCD #### [place] [address] Performed By: #### L MCBD #### [place] [address] Hemogram/Manual Diffon 01-20 Abs. Baso 0.12 thou/cmm High 0.00-0.[address] [facility] Comment on above: Performed By: #### L MCBD #### [place] [address] Abs. [place] 0.62 thou/cmm Normal 0.20-1.[address] [facility] Comment on above: Performed By: #### L MCBD #### [facility] [address] [place], [place] [address] Abs. Neut (ANC) 10.42 thou/cmm High 3.00-5.67 [facility] Comment on above: Performed By: #### L MCBD #### [facility] [address] [place], [place] [address] Basophils/100 WBC (Bld) 1.0 % Normal [facility] Comment on above: Performed By: #### L MCBD #### [place] [address] Diff Type Manual Diff Normal [facility] Comment on above: Performed By: #### L MCBD #### [address] [address] Eosinophils #/vol (Bld) 0.00 thou/cmm Normal 0.00-0.41 [facility] Comment on above: Performed By: #### L MCBD #### [address] [address] Eosinophils/100 WBC (Bld) 0.0 % Normal [facility] Comment on above: Performed By: #### L MCBD #### [address] [address] Lymphocytes #/vol (Bld) 1.24 thou/cmm Low 1.50-3.65 [facility] Comment on above: Performed By: #### L MCBD #### [address] [address] Lymphocytes/100 WBC (Bld) 10.0 % Normal [facility] Comment on above: Performed By: #### L MCBD #### [address] [address] Monocytes/100 WBC (Bld) 5.0 % Normal [facility] Comment on above: Performed By: #### L MCBD #### [address] [address] Platelets #/vol (Bld) Normal [facility] Comment on above: Performed By: #### L MCBD #### [facility] [address] [place] [address] RBC morphology finding Nom (Bld) Normal Normal [facility] Comment on above: Performed By: #### L MCBD #### [facility] [address] [place] [address] Seg Neutrophil 84.0 % Normal [facility] Comment on above: Performed By: #### L MCBD #### [facility] [address] [place] [address] Toxic Granulation Few Normal [facility] Comment on above: Performed By: #### L MCBD #### [facility] [address] [place] [address] Erythrocyte distribution width Ratio (RBC) 12.7 % Normal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 (Progressing) Start: 10/29/22 Expected End: 12/29/22 Goal note from Clinical Support 12/02/2022 by Hoa Craig PT Difficult to assess d/t sub max effort Functional Outcome Measure: Patient will improve 40/80 (Progressing) Start: 10/29/22 Expected End: 12/29/22 Time Entry Total Treatment Time Start Time: 1033 Stop Time: 1100 Time Calculation (min): 27 min PT Therapeutic Procedures Time Entry Aquatic Therapy Time Entry: Charles Chandra PTA documented in this encounter [facility] [employer] 12-02-2022 History of Presen t illness Narrative Images from the original note were not included. [facility] [place] [facility] AT [address] [place] [address] Dept: [phone] Dept PHYSICAL THERAPY RE-EVALUATION Patient Name: Jamel Miramontes : 1960 Today's Date: 12/02/2022 Visit Info General Visit Information General Chart Reviewed: Yes General Comments: Pt reports the rainy weather makes her achy. Pt reports she had a tooth pulled 1 week ago and her mouth is still swollen and sore. Pt states she feels the pool therapy is helping. Pt reports it :1. has gotten her motivated to move 'out of the pain'., 2. increased confidense to do more at home.,.3. looks forward to coming to PT. Overall pt reports pain is less intense and she can move body to adjust to reduce pain, bakc is in less spasm from initial injury. Pt is scheduled for hip injections ~ 12/17/22. Pain Pain Assessment Pain Score: 3 (Best: 3/10, worse in last week 7/10) Assessment MMT: 5/5 except: B hip extension 3-/5, L hip ABD. 3-/5, core: 3-/5 Sub max effort. Extremity/Ortho Assessments Hip Gait Assessment: non antlagi gt pattern. Non antalgic transitions. R Hip Flexbility R Hamstring Flexibility: Reduced (Mild restrictions) R Hip Flexor Flexibility: Reduced (slight) R Hip External Rotation Flexibility: Reduced (slight) LL Hip Flexbility L Hamstring Flexibility: Reduced (moderate) L Hip Flexor Flexibility: Reduced (mild) L Hip External Rotation Flexibility: Reduced (slight) Lumbar Spine L-Spine ROM Flexion 50 Extension 10 Lat Flexion R 10 Lat Flexion L 10 Rotation R Rotation L L-Spine Special Tests Straight Leg Raise: Right Negative, Left Negative Slump: Negative Treatment Therapeutic Activity # of Activities: 1 Therapeutic Activity 1: re-assessment Activity 1 Comment: Re-assessment: Re-assessed patients objective & subjective measures, reviewed patients POC, addressed goals and patients progress. Discussed D/C planning, discussed continuation of current HEP for maximum benefit and carryover to maintain pain free function. Patient with verbal acknowledgement and understanding. Plan & Recommendations PT Assessment PT Assessment: Pt with subjective improvements and mild objective improvement, but difficult to assess d/t submax effort with MMT. Overall, pt demonstrates non antlagic gt/transitions and improved mobility. Recommend pt finish 15 visits with transition to independnant aquaitc/HEP. Plan Therapeutic Contents: Aquatics/pool PT Plan: Py to continue with aquatic PT x 4 with 5th visit as a re-assessment, then pt is to transition to an independant HEP/aquativ program. Do not recommend any additional visits after 15 for skilled PT . Discussed with pt 3-4 different options for transition including [facility] [place] [facility]. Pt provide verbal acknowledgement and understanding Active Patient will report decreased pain at 1/10 in back/LE to be able to restore unrestricted functional activities.. (Progressing) Start: 10/29/22 Expected End: 12/29/22 Goal Note Overall reduced, but subjectively no less than 3/10 Patient will increase strength in core to be able to restore unrestricted functional acitivites (Not Progressing) Start: 10/29/22 Expected End: 12/29/22 Goal Note Difficult to assess d/t sub max effort Functional Outcome Measure: Patient will improve 40/80 (Progressing) Start: 10/29/22 Expected End: 12/29/22 Time Entry Total Treatment Time Start Time: 829 Stop Time: 899 Time Calculation (min): 30 min PT Therapeutic Procedures Time Entry Therapeutic Activity Time Entry: Hoa Craig, ARPITA documented in this encounter [facility] Evaluation note Diagnosis Other spondylosis, lumbar region- Primary documented in this encounter [facility]* Diagnosis Other spondylosis, lumbar region- Primary documented in this encounter [facility]* Diagnosis Other spondylosis, lumbar region- Primary documented in this encounter [facility]* Diagnosis Other spondylosis, lumbar region- Primary documented in this encounter [facility]* Diagnosis Other spondylosis, lumbar region- Primary documented in this encounter [facility]* Diagnosis Other spondylosis, lumbar region- Primary [facility] Consultation (Routine) - Pending Review Specialty Diagnoses / Procedures Referred By Pat t Referred To Contact Physical Therapy Diagnoses Other spondylosis, lumbar region Procedures LA OFFICE/OUTPATIENT [facility] 60-74 MINUTES Yvette Moeller [address] [place] [address] [place] [address] Referral ID Status Reason Start Date Expiration Date Visits Requested Visits Authorized [id number] Pending Review Specialty Services Required 2 04/19/2023 15 15 [facility] Summary Purpose Family History No Family History Records FoundNo Family History Records FoundNo Family History Records FoundNo Family History Records FoundNo Family History Records FoundNo Family History Records Found Advance Directives No Advanced Directives Records FoundNo Advanced Directives Records FoundNo Advanced Directives Records FoundNo Advanced Directives Records FoundNo Advanced Directives Records FoundNo Advanced Directives Records Found Additional Source Comments INFORMATION SOURCE (unrecogn ized section and content) DATE CREATED AUTHOR 08/01/2018 [facility] DATE CREATED AUTHOR AUTHOR'S ORGANIZ ATION 11/02/2018 [facility] DATE CREATED AUTHOR AUTHOR'S ORGANIZ ATION 02/15/2019 [facility] DATE CREATED AUTHOR AUTHOR'S ORGANIZ ATION [facility] DATE CREATED AUTHOR AUTHOR'S ORGANIZ ATION [facility]20[facility] DATE CREATED AUTHOR AUTHOR'S ORGANIZ ATION 12/17/2022 [facility] Reason for Visit (unrecogniz ed section and content) Reason Comments PT Discharge Specialty Diagnoses / Procedures Referred By Contac t Referred To Contact Physical Therapy Diagnoses Other spondylosis, lumbar region Procedures LA OFFICE/OUTPATIENT [facility] 60-74 MINUTES Yvette Moeller [address] [place] [address] [facility] Pt [facility] [place] [address] Referral ID Status Reason Start Date Expiration Date Visits Requested Visits Authorized [id number] Pending Review Specialty Services Required 2 04/19/2023 15 15 Reason Comments PT Treatment Reason Comments Pt Re-evaluation Care Teams (unrecognized sec tion and content) Vertical Lathe Operator Relationship Specialty Start Date End Date Soni Wilcox V [address] [place] [address] [phone] PCP - General 07/26/18 Vertical Lathe Operator Relationship Specialty Start Date End Date Soni Wilcox V [address] [place] [address] [phone] PCP - General 07/26/18 Vertical Lathe Operator Relationship Specialty Start Date End Date Soni Wilcox [address] [phone] PCP - General 07/26/18 Vertical Lathe Operator Relationship Specialty Start Date End Date Soni Wilcox V [address] [place] [address] [phone] PCP - General 07/26/18 Vertical Lathe Operator Relationship Specialty Start Date [place] [phone] PCP - General 07/26/18 Vertical Lathe Operator Relationship Specialty Start Date End Date Soni Wilcox [address] [place] [phone] PCP - General 07/26/18 FOR RECORDS PERTAINING TO PATIENTS WHO ARE OR HAVE BEEN ENROLLED IN A CHEMICAL DEPENDENCY/SUBSTANCEABUSE PROGRAM, SOME INFORMATION MAY BE OMITTED. This clinical summary was aggregated from multiple sources. Caution should be exercised in using it in the provision of clinical care. This summary normalizes information from multiple sources, and as a consequence, information in this document may materially change the coding, format and clinical context of patient data. In addition, data may be omitted in some cases. CLINICAL DECISIONS SHOULD BE BASED ON THE PRIMARY CLINICAL RECORDS. [facility] [employer] [facility]. provides no warranty or guarantee of the accuracy or completeness of information in this document.
[2025-06-18 14:12] VITALS: BP 124/88; PULSE 91; RESP 14; TEMP 36.6; O2SAT 99
== END 2025-06-18 14:13 | disposition home or self-care (01) ==
LOC: ED 14:09
PROVIDERS: Emergency Provider Emergency Medicine; Referring Provider Emergency Medicine; Visit Provider Emergency Medicine
DX: S96.912A Strain of unspecified muscle and tendon at ankle and foot level, left foot, initial encounter (principal); W01.0XXA Fall on same level from slipping, tripping and stumbling without subsequent striking against object, initial encounter; Y93.K1 Activity, walking an animal
CPT/HCPCS: 73630; 99282